=== PATIENT | female | born 1960 | race Caucasian/White ===

== ENCOUNTER 2025-01-07 12:51 | Emergency (ER) | payer BC, OTHER ==
[~2025-01-07] VITALS: Ht 160 cm; Wt 92.5 kg
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
[2025-01-07] MEDS ORDERED: FAMOTIDINE 20MG VIAL IV ONE (13:00)
[2025-01-07] MEDS ORDERED: PRED20TA3 PO (13:36)
[2025-01-07] MEDS ORDERED: FAMO-136 PO (13:36)
[2025-01-07 13:55] VITALS: BP 147/75; PULSE 69; RESP 16; TEMP 98.1; O2SAT 97
--- NOTE | 2025-01-07 13:58 | NUR ---
ALL VISIBLE BEE STINGS REMOVED, PT TOLERATED WELL
[2025-01-07] MEDS: FAMOTIDINE 20MG TAB PO ONE (14:02)
[2025-01-07] MEDS: NEOMY SULF/BACITRA/POLYMYXIN B 1 EACH PACKET TP ONE (14:02)
== END 2025-01-07 14:14 | disposition home or self-care (01) ==
LOC: EDH 12:51
DX: T63.441A Toxic effect of venom of bees, accidental (unintentional), initial encounter (principal); S60.811A Abrasion of right wrist, initial encounter; S80.211A Abrasion, right knee, initial encounter; S00.81XA Abrasion of other part of head, initial encounter; Z90.49 Acquired absence of other specified parts of digestive tract; Z88.8 Allergy status to other drugs, medicaments and biological substances; Y92.89 Other specified places as the place of occurrence of the external cause
CPT/HCPCS: 99284; 96372; J1100